=== PATIENT | female | born 1940 | race Two or more races ===

== ENCOUNTER 2016-12-08 19:09 | Emergency (ER) | payer MEDICARE, OTHER ==
[~2016-12-08] VITALS: Ht 162.6 cm; Wt 77.1 kg
[~2016-12-08 19:09] MED LIST: ASPI81TA31 PO; ATEN25TA PO; DULO60CA45 PO; HYDR25TA4 PO; LISI10TA5 PO; ROSU10TA PO; TRAZ-144 PO
--- NOTE | 2016-12-08 23:00 | NUR ---
PATIENT WAS CALLED SEVERAL TIMES TO BE PLACE IN ROOM. WAS NOT PRESENT IN THE DEPARTMENT
== END 2016-12-08 23:47 | disposition left against medical advice (07) ==
LOC: ER 19:09
DX: Z53.21 Procedure and treatment not carried out due to patient leaving prior to being seen by health care provider (principal)
CPT/HCPCS: A4663